=== PATIENT | male | born 1980 | race Caucasian/White ===

== ENCOUNTER 2021-11-13 13:15 | Emergency (ER) | payer SELFPAY ==
[~2021-11-13] VITALS: Ht 177.8 cm; Wt 79.3 kg
[2021-11-13 13:40] LABS: BASOPHILS # (AUTO) 0.1 10^3/uL (0.0-0.1); BASOPHILS % (AUTO) 0 % (0-10); EOSINOPHILS # (AUTO) 0.1 10^3/uL (0.0-0.3); EOSINOPHILS % (AUTO) 1 % (0-10); HEMATOCRIT 46 % (40-54); HEMOGLOBIN 15.5 g/dL (13.3-17.7); LYMPHOCYTES % (AUTO) 25 % (12-44); MEAN CORPUSCULAR HEMOGLOBIN 33 pg (25-34); MEAN CORPUSCULAR HGB CONC 34 g/dL (32-36); MEAN CORPUSCULAR VOLUME 98 fL (80-99); MEAN PLATELET VOLUME 10.3 fL (9.0-12.2); MONOCYTES # (AUTO) 0.7 10^3/uL (0.0-1.0); MONOCYTES % (AUTO) 5 % (0-12); NEUTROPHILS # (AUTO) 8.5 10^3/uL (1.8-7.8); NEUTROPHILS % (AUTO) 69 % (42-75); PLATELET COUNT 251 10^3/uL (130-400); WHITE BLOOD COUNT 12.3 10^3/uL (4.3-11.0)
[2021-11-13 13:46] LABS: ALBUMIN 4.1 GM/DL (3.2-4.5); POTASSIUM 3.9 MMOL/L (3.6-5.0)
[2021-11-13 13:49] LABS: TOTAL PROTEIN 6.9 GM/DL (6.4-8.2)
[2021-11-13 13:51] LABS: BILIRUBIN,TOTAL 0.5 MG/DL (0.1-1.0)
[2021-11-13 13:52] LABS: CREATININE SERUM 1.11 MG/DL (0.60-1.30); PROTHROMBIN TIME PATIENT 13.8 SEC (12.2-14.7)
[2021-11-13 13:55] LABS: MAGNESIUM 2.1 MG/DL (1.6-2.4)
--- NOTE | 2021-11-13 14:11 | Diagnostic Imaging Report ---
EXAMINATION: Chest, one view. HISTORY: Chest pain. COMPARISON: None available. FINDINGS: The lung volumes are normal. No focal consolidation is seen. No large pleural effusion or pneumothorax is seen. The cardiomediastinal silhouette is normal in size and contour. No acute osseous abnormality is seen. IMPRESSION: 1. No acute pleural-parenchymal process. Dictated by: Dictated on workstation # [id number]
[2021-11-13] MEDS ORDERED: ANTACID SUSP 30 ML UDC (MYLANTA) PO ONE (14:30)
[2021-11-13] MEDS ORDERED: LIDOCAINE 2% VISCOUS 15 ML UDC PO ONE (14:30)
[2021-11-13] MEDS ORDERED: AZIT250T12 PO (14:42)
[2021-11-13] MEDS ORDERED: PRD20T PO (14:42)
--- NOTE | 2021-11-13 14:42 | ED Chest Pain ---
General Chief Complaint: Chest Pain Stated Complaint: CP,SOB, R ARM NUMBNESS Source: patient Exam Limitations: no limitations (ROME DILLON APRN) History of Present Illness Date Seen by Provider: Nov 13, 2021 Time Seen by Provider: 14:36 Initial Comments to ER with reports of central chest pressure that started at about 10 AM this morning while he was driving. Activity seem to make it worse. He does have shortness of breath. He is also had a productive cough for the past few days. No fevers or chills. No nausea or vomiting.He does smoke 1 pack of cigarettes per day Timing/Duration: changing over time Severity/Quality: moderate Location: central Radiation: no radiation Activities at Onset: none Prior CP/Workup: no prior chest pain ASA po RECTIFYING OPERATOR: No NTG SL RECTIFYING OPERATOR: No Associated Symptoms: shortness of breath (ROME DILLON APRN) Allergies and Home Medications Allergies Coded Allergies: No Known Drug Allergies (Unverified , 11/13/21) Patient Home Medication List Home Medication List Reviewed: Yes (ROME DILLON APRN) Azithromycin (Azithromycin) 250 Mg Tablet, 500 MG PO DAILY Prescribed by: ROME DILLON on 11/13/21 1442 Prednisone (Prednisone) 20 Mg Tab, 40 MG PO DAILY Prescribed by: ROME DILLON on 11/13/21 1442 Review of Systems Review of Systems Constitutional: see HPI EENTM: No Symptoms Reported Respiratory: See HPI, Cough Cardiovascular: See HPI, Chest Pain Gastrointestinal: No Symptoms Reported Genitourinary: No Symptoms Reported Musculoskeletal: no symptoms reported Skin: no symptoms reported Psychiatric/Neurological: No Symptoms Reported Endocrine: No Symptoms Reported Hematologic/Lymphatic: No Symptoms Reported (ROME DILLON APRN) Physical Exam Vital Signs Vital Signs - First Documented 11/13/21 13:15 Pulse 69 Resp 20 B/P (MAP) 121/83 (96) Pulse Ox 98 (BRIAN ALVARENGA MD) Vital Signs Capillary Refill : (ROME DILLON APRN) Height, Weight, BMI Height: '" Weight: lbs. oz. kg; BMI Method: General Appearance: No Apparent Distress, WD/WN Neck: Full Range of Motion, Normal Inspection Respiratory: Lungs Clear, Normal Breath Sounds, No Accessory Muscle Use, No Respiratory Distress Cardiovascular: Regular Rate, Rhythm, Normal Peripheral Pulses Gastrointestinal: Non Tender, Soft Extremity: Normal Capillary Refill, Normal Inspection Neurologic/Psychiatric: Alert, Oriented x3 Skin: Normal Color, Warm/Dry (ROME DILLON APRN) Progress/Results/Core Measures Results/Orders Lab Results Laboratory Tests Test 11/13/21 13:29 11/13/21 14:44 Range/Units White Blood Count 12.3 H 4.3-11.0 10^3/uL Red Blood Count 4.66 4.30-5.52 10^6/uL Hemoglobin 15.5 13.3-17.7 g/dL Hematocrit 46 40-54 % Mean Corpuscular Volume 98 80-99 fL Mean Corpuscular Hemoglobin 33 25-34 pg Mean Corpuscular Hemoglobin Concent 34 32-36 g/dL Red Cell Distribution Width 12.5 10.0-14.5 % Platelet Count 251 130-400 10^3/uL Mean Platelet Volume 10.3 9.0-12.2 fL Immature Granulocyte % (Auto) 0 % Neutrophils (%) (Auto) 69 42-75 % Lymphocytes (%) (Auto) 25 12-44 % Monocytes (%) (Auto) 5 0-12 % Eosinophils (%) (Auto) 1 0-10 % Basophils (%) (Auto) 0 0-10 % Neutrophils # (Auto) 8.5 H 1.8-7.8 10^3/uL Lymphocytes # (Auto) 3.0 1.0-4.0 10^3/uL Monocytes # (Auto) 0.7 0.0-1.0 10^3/uL Eosinophils # (Auto) 0.1 0.0-0.3 10^3/uL Basophils # (Auto) 0.1 0.0-0.1 10^3/uL Immature Granulocyte # (Auto) 0.1 0.0-0.1 10^3/uL Prothrombin Time 13.8 12.2-14.7 SEC INR Comment 1.0 0.8-1.4 Activated Partial Thromboplast Time 29 24-35 SEC Sodium Level 139 135-145 MMOL/L Potassium Level 3.9 3.6-5.0 MMOL/L Chloride Level 106 98-107 MMOL/L Carbon Dioxide Level 22 21-32 MMOL/L Anion Gap 11 5-14 MMOL/L Blood Urea Nitrogen 15 7-18 MG/DL Creatinine 1.11 0.60-1.30 MG/DL Estimat Glomerular Filtration Rate 84 BUN/Creatinine Ratio 14 Glucose Level 119 H 70-105 MG/DL Calcium Level 9.0 8.5-10.1 MG/DL Corrected Calcium 8.9 8.5-10.1 MG/DL Magnesium Level 2.1 1.6-2.4 MG/DL Total Bilirubin 0.5 0.1-1.0 MG/DL Aspartate Amino Transf (AST/SGOT) 19 5-34 U/L Alanine Aminotransferase (ALT/SGPT) 18 0-55 U/L Alkaline Phosphatase 78 40-136 U/L Myoglobin 52.1 10.0-92.0 NG/ML Troponin I < 0.028 < 0.028 <0.028 NG/ML B-Type Natriuretic Peptide 22.3 <100.0 PG/ML Total Protein 6.9 6.4-8.2 GM/DL Albumin 4.1 3.2-4.5 GM/DL (BRIAN ALVARENGA MD) My Orders Orders - BRIAN ALVARENGA MD Ekg Tracing (11/13/21 13:22) (BRIAN ALVARENGA MD) Medications Given in ED Current Medications Medications Dose Ordered Sig/Tatyana Route Start Time Stop Time Status Last Admin Dose Admin Al Hydrox/Mg Hydrox/Simethicone 30 ml ONCE ONCE PO 11/13/21 14:30 11/13/21 14:32 DC 11/13/21 14:39 30 ML Lidocaine HCl 15 ml ONCE ONCE PO 11/13/21 14:30 11/13/21 14:32 DC 11/13/21 14:39 15 ML (BRIAN ALVARENGA MD) Vital Signs/I&O 11/13/21 11/13/21 13:15 15:45 Pulse 69 65 Resp 20 16 B/P (MAP) 121/83 (96) 121/80 Pulse Ox 98 99 (BRIAN ALVARENGA MD) Departure Impression Primary Impression: Chest pain Additional Impression: Bronchitis Disposition: 01 HOME, SELF-CARE Condition: Stable Departure-Patient Inst. Decision time for Depature: 14:38 (ROME DILLON APRN) Referrals: NO,LOCAL PHYSICIAN (PCP/Family) Primary Care Physician Patient Instructions: Bronchitis, Adult ED Scripts Azithromycin (Azithromycin) 250 Mg Tablet 500 MG PO DAILY, #6 TAB 0 Refills Prov: ROME DILLON APRN 11/13/21 Prednisone (Prednisone) 20 Mg Tab 40 MG PO DAILY, #8 TAB Prov: ROME DILLON APRN 11/13/21 ATTENDING PHYSICIAN NOTE: I was physically present as attending physician in the emergency department during the care of this patient, but I was not directly involved in the decision making or delivery of care for this patient. (BRIAN ALVARENGA MD) ROME DILLON APRN Nov 13, 2021 14:41 BRINA ALVARENGA MD Nov 13, 2021 20:45
[2021-11-13 15:45] VITALS: BP 121/80
== END 2021-11-13 15:45 | disposition home or self-care (01) ==
LOC: ER 13:17
DX: J40 Bronchitis, not specified as acute or chronic (principal); F17.210 Nicotine dependence, cigarettes, uncomplicated
CPT/HCPCS: 36415; 71045; 80053; 83735; 83874; 83880; 84484; 85025; 85610; 85730; 93005; 93041